=== PATIENT | female | born 2000 | race Two or more races ===

== ENCOUNTER → 2023-09-15 | Outpatient (REF) | payer BC ==
[2023-09-15 19:57] LABS: GC DNA AMPLIFICATION NEGATIVE (NEGATIVE)
== END ==
LOC: M LAB REF 16:59
PROVIDERS: ATTEND Registered Nurse
DX: Z11.3 Encounter for screening for infections with a predominantly sexual mode of transmission (principal)

== ENCOUNTER → 2023-09-30 | Outpatient (CLI) | payer BC | LOC: M WHC 08:35 | PROVIDERS: ATTEND Registered Nurse | DX: N63.13 Unspecified lump in the right breast, lower outer quadrant (principal) ==